=== PATIENT | female | born 1940 | race Caucasian/White ===

== ENCOUNTER → 2017-08-06 | Outpatient (CLI) | payer MEDICARE, BC ==
[~2017-08-06] MED LIST: ASPIRIN325 PO; BACTRIM DS TAB1 EACH PO; CENTRUM SILVER1 EAC4 PO; CLEOCIN HCL150 MG PO; IBUPROFEN 600600 M1 PO; LIPITOR 20 MG T20 M1 PO; MEDROLDOSEPACK PO; NORVASC5 MG PO
== END ==
LOC: M.RAD 07-29 10:41
DX: M85.80 Other specified disorders of bone density and structure, unspecified site (principal); Z12.31 Encounter for screening mammogram for malignant neoplasm of breast; Z88.5 Allergy status to narcotic agent

== ENCOUNTER 2017-12-27 12:55 | Inpatient (IN) | payer MEDICARE, BC ==
[~2017-12-27] VITALS: Ht 167.6 cm; Wt 80.3 kg
[~2017-12-27 12:55] MED LIST changes: -ASPIRIN325 PO; -IBUPROFEN 600600 M1 PO; -NORVASC5 MG PO
[2017-12-27 13:01] VITALS: BP 181/88
[2017-12-27] MEDS ORDERED: IBUPROFEN 600600 M1 PO (13:08)
[2017-12-27] MEDS ORDERED: ASPIRIN325 PO (13:08)
[2017-12-27 13:32] LABS: ABSOLUTE EOSINOPHILS 0.3 thou/uL (0.0-0.7); ABSOLUTE LYMPHOCYTES 2.4 thou/uL (0.8-5.3); ABSOLUTE MONOCYTES 0.6 thou/uL (0.0-1.2); BASOPHILS 0.6 %; EOSINOPHILS 3.4 %; HEMATOCRIT 41.2 % (37.0-47.0); HEMOGLOBIN 13.9 gm/dL (12.0-15.0); LYMPHOCYTES 28.5 %; MCH 31.8 pg (26.0-34.0); MCHC 33.7 g/dL (28.0-37.0); MCV 94.4 fL (80.0-100.0); MONOCYTES 7.2 %; MPV 8.1 fl. (7.2-11.1); NUCLEATED RBCS 0 /100WBC; PLATELET COUNT* 240 thou/uL (150-400); POLYS 60.3 %; RBC 4.36 mil/uL (4.20-5.00); RDW-CV 12.1 % (10.5-14.5); WBC 8.3 thou/uL (4.0-11.0)
[2017-12-27 13:37] LABS: ANION GAP 6 mmol/L (7-16); BUN 15 mg/dL (7-18); CALCIUM 9.1 mg/dL (8.5-10.1); CHLORIDE 103 mmol/L (98-107); CO2 28 mmol/L (21-32); CREATININE 0.7 mg/dL (0.6-1.3); GLUCOSE 110 mg/dL (70-99); POTASSIUM 3.7 mmol/L (3.5-5.1); SODIUM 137 mmol/L (136-145)
[2017-12-27 13:38] LABS: APTT 25.2 Seconds (25.0-31.3); PROTIME 10.3 Seconds (9.20-11.50)
[2017-12-27 13:48] LABS: ALBUMIN 3.5 g/dL (3.4-5.0); ALKALINE PHOSPHATASE 86 U/L (46-116); NT-PRO BRAIN NAT PEPTIDE 181 pg/mL (<300); SGOT 20 U/L (15-37); SGPT 19 U/L (30-65); TOTAL BILIRUBIN 0.8 mg/dL (<0.1-1.0); TOTAL PROTEIN 7.2 g/dL (6.4-8.2); TROPONIN-I LEVEL <0.06 ng/mL (<0.06)
[2017-12-27 15:51] VITALS: BP 176/90
[2017-12-27 17:15] VITALS: BP 165/89
[2017-12-27 20:00] VITALS: BP 145/72
[2017-12-28] VITALS (7 sets, daily range): BP systolic 108–149; BP diastolic 57–75
[2017-12-28 06:59] LABS: URINE BILIRUBIN NEGATIVE (Negative); URINE BLOOD NEGATIVE (Negative); URINE CLARITY CLEAR; URINE COLOR YELLOW; URINE GLUCOSE-RANDOM NEGATIVE (Negative); URINE KETONES NEGATIVE (Negative); URINE LEUKOCYTES-REFLEX TRACE (Negative); URINE PROTEIN NEGATIVE (Negative); URINE SPECIFIC GRAVITY 1.025 (1.005-1.030)
[2017-12-28 07:08] LABS: URINE NITRITE-REFLEX POSITIVE (Negative)
[2017-12-28 07:48] LABS: BACTERIA-REFLEX >30 Many /HPF (None Seen); CASTS None Seen /LPF (None Seen); MUCUS 0-3 Light strn/LPF (None Seen); SQUAMOUS 0-3 Few /LPF (0-3); URINE RBC 0-2 Rare /HPF (0-2)
[2017-12-28 07:49] LABS: CRYSTALS None Seen /LPF (None Seen)
--- NOTE | 2017-12-28 10:58 | EKG ---
[place] [address] ELECTROCARDIOGRAM REPORT Name: KARI RICHARDSON Room: [address] ADM IN M.R.#: [id number] Admission: 12/27/17 Attend Phys: Louis Samaniego, Discharge: Date of : 44 Report #: [id number] THIS REPORT FOR: //name// [facility] ED Test Date: 2017-12-27 Test Time: 13:13:00 Pat Name: KARI RICHARDSON Department: Room: [facility] Gender: F Quality Engineer Medical Device: [place] : 1940 Requested By: Jorge Lo Order Number: [id number] MD: Mayo Dyson Measurements Intervals [place] Rate: 76 P: 37 NM: 150 QRS: -19 QRSD: 95 T: 12 QT: 372 QTc: 419 Interpretive Statements Sinus rhythm Borderline left axis deviation Abnormal R-wave progression, early transition Borderline T abnormalities, anterior leads No previous ECG available for comparison Electronically Signed On 12-28-2017 10:57:53 CDT by Mayo Dyson [email or web address] <ELECTRONICALLY SIGNED> By: Jo Dyson MD, [facility] 12/28/17 1057 1313 1313 Jo Dyson MD, [facility] /EPI
[2017-12-29] VITALS (7 sets, daily range): BP systolic 124–145; BP diastolic 65–78
[2017-12-29] MEDS ORDERED: NORVASC5 MG PO (10:23)
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
== END 2017-12-29 16:37 | disposition home or self-care (01) | DRG 641 ==
LOC: M.ERS 12:55 → M.TBA-ER 14:53 → M.2W 14:53
PROVIDERS: Family Medicine; ADMIT Family Medicine
DX: E86.0 Dehydration (principal); R42 Dizziness and giddiness; I10 Essential (primary) hypertension; I95.9 Hypotension, unspecified; G31.9 Degenerative disease of nervous system, unspecified; E78.00 Pure hypercholesterolemia, unspecified; Z87.828 Personal history of other (healed) physical injury and trauma; Z79.82 Long term (current) use of aspirin; Z87.891 Personal history of nicotine dependence; Z79.899 Other long term (current) drug therapy; Z88.5 Allergy status to narcotic agent; Z91.048 Other nonmedicinal substance allergy status

== ENCOUNTER → 2018-02-12 | Outpatient (CLI) | payer MEDICARE, BC ==
[~2018-02-12] MED LIST changes: +ASPIRIN325 PO; +IBUPROFEN 600600 M1 PO; +NORVASC5 MG PO
== END ==
LOC: M.MRI 16:33
DX: M50.10 Cervical disc disorder with radiculopathy, unspecified cervical region (principal); M48.02 Spinal stenosis, cervical region; R42 Dizziness and giddiness; Z68.29 Body mass index [BMI] 29.0-29.9, adult

== ENCOUNTER → 2019-07-12 | Outpatient (CLI) | payer MEDICARE, BC | LOC: M.LAB 13:17 | DX: G20 Parkinson's disease (principal); I25.10 Atherosclerotic heart disease of native coronary artery without angina pectoris; Z87.39 Personal history of other diseases of the musculoskeletal system and connective tissue ==

== ENCOUNTER → 2019-07-19 | Outpatient (CLI) | payer MEDICARE, BC | LOC: M.MRI 07-12 14:01 | DX: I25.10 Atherosclerotic heart disease of native coronary artery without angina pectoris (principal); G20 Parkinson's disease; Z87.39 Personal history of other diseases of the musculoskeletal system and connective tissue ==

== ENCOUNTER → 2020-03-13 | Outpatient (CLI) | payer MEDICARE, BC | LOC: M.RAD 16:00 | PROVIDERS: ATTEND Internal Medicine | DX: Z12.31 Encounter for screening mammogram for malignant neoplasm of breast (principal); M85.88 Other specified disorders of bone density and structure, other site ==

== ENCOUNTER → 2021-05-15 | Outpatient (CLI) | payer MEDICARE, BC | LOC: M.RAD 04-02 16:00 | PROVIDERS: ATTEND Internal Medicine | DX: Z12.31 Encounter for screening mammogram for malignant neoplasm of breast (principal) ==